=== PATIENT | female | born 1950 | race Two or more races ===

== ENCOUNTER → 2020-10-31 | Day surgery (SDC) | payer OTHER, MEDICAID ==
[~2020-10-31] VITALS: Ht 154.9 cm; Wt 59.0 kg
[~2020-10-31] MED LIST: ATOR10TA PO; DOCU100T15 PO; FAMO-68 PO; GABA300C10 PO; GLYCOPYRROLATE 0.2 MG/ML 1ML VIAL ONE; HYDR25TA4; IOHEXOL 300 MG/ML 100ML BOTTLE IJ ONE; LEVO75TA6 PO; METO-159 PO; MIDAZOLAM HCL 1MG/1ML-2 ML VIAL ONE; OMEP20TA PO; ONDANSETRON HCL 4 MG/2 ML VIAL IV PRN; PROPOFOL 10 MG/ML 20 ML IV ONE; ceFAZolin 1GM/50ML 100 ML IV ONE; fentaNYL CITRATE 100 MCG/2 ML VL ONE
[2020-10-31] MEDS: HYDROmorphone HCL 2 MG/ML VL IV PRN ×2 (13:58→14:17)
[2020-10-31 14:30] VITALS: BP 133/76
== END | disposition home or self-care (01) ==
LOC: SUR 09:24
PROVIDERS: ATTEND Urology
DX: T19.9XXA Foreign body in genitourinary tract, part unspecified, initial encounter (principal); I10 Essential (primary) hypertension; E78.5 Hyperlipidemia, unspecified; K21.9 Gastro-esophageal reflux disease without esophagitis; Z20.822 Contact with and (suspected) exposure to COVID-19; X58.XXXD Exposure to other specified factors, subsequent encounter
CPT/HCPCS: 52315; 88300; J0690; J1170; J2250; J2704; J3010; U0003